=== PATIENT | male | born 1985 | race Caucasian/White ===

== ENCOUNTER 2018-02-07 19:54 | Emergency (ER) | payer BC, OTHER ==
[~2018-02-07] VITALS: Ht 180.3 cm; Wt 83.9 kg
--- NOTE | 2018-02-07 19:58 | NUR ---
EMT AT BEDSIDE FOR EKG.
--- NOTE | 2018-02-07 20:02 | NUR ---
BIBSELF C/O LEFT SIDED NONRADIATING CHEST PAIN SINCE 11PM, WORSE NOW. PT AOX4 RR EVEN AND UNLABORED. NO SOB NOTED. NAD NOTED. NO NVD AT THIS TIME. PT GOWNED AND PLACED ON MONTIOR. PT NOT DIAPHORETIC. PT WAITING FOR MD FULTON.
[2018-02-07] MEDS ORDERED: IBUPROFEN 600 MG TABLET PO ONE ×2 (20:30→20:45)
--- NOTE | 2018-02-07 21:20 | NUR ---
LAB AT BEDSIDE FOR DRAW.
[2018-02-07 21:25] LABS: BASOPHILS % (AUTO) 0.5 % (0.0-2.0); HEMATOCRIT 42 % (39-51); HEMOGLOBIN 14.5 g/dL (13.5-17.5); LYMPHOCYTES # (AUTO) 1.5 /CMM (0.8-4.8); LYMPHOCYTES % (AUTO) 21.3 % (20.0-44.0); MEAN CORPUSCULAR HGB CONC 35 g/dl (31.0-36.0); MEAN CORPUSCULAR VOLUME 86 fL (80-96); MONOCYTES # (AUTO) 0.5 /CMM (0.1-1.30); MONOCYTES % (AUTO) 6.8 % (2.0-12.0); NEUTROPHILS # (AUTO) 5.1 /CMM (1.8-8.9); NEUTROPHILS % (AUTO) 69.4 % (43.0-81.0); PLATELET COUNT (AUTO) 222 /CMM (150-450); RDW COEFFICIENT OF VARIATION 12.4 (11.5-15.0); RED BLOOD CELL COUNT(AUTO) 4.83 MIL/uL (4.5-6.0); WHITE BLOOD COUNT (AUTO) 7.2 K/uL (4.3-11.0)
[2018-02-07 21:37] LABS: CALCIUM, SERUM 8.6 mg/dL (8.5-10.1); CREATININE 0.9 mg/dL (0.6-1.3); POTASSIUM 4.1 mmol/L (3.5-5.1)
--- NOTE | 2018-02-07 22:37 | NUR ---
Patient discharged to home in stable condition. Written and verbal after care instructions given. Patient verbalizes understanding of instruction. Patient ambulatory with a steady gait.
[2018-02-07 22:38] VITALS: BP 135/81
== END 2018-02-07 22:40 | disposition home or self-care (01) ==
LOC: ER 19:58
DX: R07.81 Pleurodynia (principal); M32.9 Systemic lupus erythematosus, unspecified
CPT/HCPCS: 36415; 71045-TC; 80048-TC; 85025-TC; 85378-TC; A4606; Z7610